=== PATIENT | male | born 1965 | race American Indian/Alaskan Native ===

== ENCOUNTER 2018-11-08 09:07 | Emergency (ER) | payer SELFPAY ==
[2018-11-08] MEDS ORDERED: IBUPROFEN PO ONE (10:28)
[2018-11-08] MEDS ORDERED: CLEOCIN IM ONE (10:28)
--- NOTE | 2018-11-08 10:44 | Emergency Department Report ---
ED ENT HPI - General Chief complaint: Dental/Oral Stated complaint: ABCESS Time Seen by Provider: 11/08/18 09:49 Source: patient Mode of arrival: Ambulatory Limitations: No Limitations - History of Present Illness Initial comments: This is a 53-year-old male nontoxic, well nourished in appearance, no acute signs of distress presents to the ED with c/o of left upper toothache 3 weeks. Patient denies following up with a dentist. Patient stated that pain radiates from his job to his left side of head. Patient otherwise denies any head trauma. Patient describes toothache as aching level of 8 out of 10. Patient denies any facial swelling. Patient denies any numbness, tingling, fever, chills, headache, stiff neck, abdominal pain, chest pain, shortness of breath. Patient denies any drug allergies or significant past medical history. MD complaint: tooth pain -: week(s) Location: tooth # 1 - dental caries Severity: mild Severity scale (0 -10): 8 Quality: aching Consistency: constant Improves with: none Worsens with: none Context- Dental: history of dental caries, poor dental care Associated Symptoms: gum swelling, toothache. denies: fever, cough, pain with swallowing, sore throat, tinnitus, hearing loss, discharge from ear, rhinorrhea - Related Data Previous Rx's Medication Instructions Recorded Last Taken Type Acetaminophen/Codeine [Tylenol 1 tab PO Q6H PRN #12 tab 11/08/18 Unknown Rx /Codeine # 3 tab] Chlorhexidine Mouthwash [Peridex] 15 ml MM BID #1 bottle 11/08/18 Unknown Rx Clindamycin [Clindamycin CAP] 300 mg PO Q8H #21 cap 11/08/18 Unknown Rx Allergies Allergy/AdvReac Type Severity Reaction Status Date / Time No Known Allergies Allergy Unverified 11/08/18 09:11 ED Dental HPI - General Chief complaint: Dental/Oral Stated complaint: ABCESS Time Seen by Provider: 11/08/18 09:49 Source: patient Mode of arrival: Ambulatory Limitations: No Limitations - Related Data Previous Rx's Medication Instructions Recorded Last Taken Type Acetaminophen/Codeine [Tylenol 1 tab PO Q6H PRN #12 tab 11/08/18 Unknown Rx /Codeine # 3 tab] Chlorhexidine Mouthwash [Peridex] 15 ml MM BID #1 bottle 11/08/18 Unknown Rx Clindamycin [Clindamycin CAP] 300 mg PO Q8H #21 cap 11/08/18 Unknown Rx Allergies Allergy/AdvReac Type Severity Reaction Status Date / Time No Known Allergies Allergy Unverified 11/08/18 09:11 ED Review of Systems ROS: Stated complaint: ABCESS Other details as noted in HPI Constitutional: denies: chills, fever Eyes: denies: eye pain, eye discharge, vision change ENT: dental pain. denies: ear pain, throat pain Respiratory: denies: cough, shortness of breath, wheezing Cardiovascular: denies: chest pain, palpitations Endocrine: no symptoms reported Gastrointestinal: denies: abdominal pain, nausea, diarrhea Genitourinary: denies: urgency, dysuria Musculoskeletal: denies: back pain, joint swelling, arthralgia Skin: denies: rash, lesions Neurological: denies: headache, weakness, paresthesias Psychiatric: denies: anxiety, depression Hematological/Lymphatic: denies: easy bleeding, easy bruising ED Past Medical Hx - Past Medical History Hx Hypertension: Yes Additional medical history: HIGH CHOLESTROL - Surgical History Hx Open Heart Surgery: Yes (2009) - Medications Home Medications: Home Medications Medication Instructions Recorded Confirmed Last Taken Type Acetaminophen/Codeine [Tylenol 1 tab PO Q6H PRN #12 tab 11/08/18 Unknown Rx /Codeine # 3 tab] Chlorhexidine Mouthwash [Peridex] 15 ml MM BID #1 bottle 11/08/18 Unknown Rx Clindamycin [Clindamycin CAP] 300 mg PO Q8H #21 cap 11/08/18 Unknown Rx ED Physical Exam - General Limitations: No Limitations General appearance: alert, in no apparent distress - Head Head exam: Present: atraumatic, normocephalic - Expanded ENT Exam Expanded Ear exam: Present: normal external inspection Mouth exam: Present: normal external inspection. Absent: drooling, trismus, muffled voice Teeth exam: Present: dental caries, fractured tooth #, dental tenderness #, gingival enlargement, other (no facial swelling) Throat exam: Positive: normal inspection, other (uvual midline. no abess present) - Neck Neck exam: Present: normal inspection, full ROM. Absent: tenderness, meningismus, lymphadenopathy - Extremities Exam Extremities exam: Present: normal inspection, full ROM - Back Exam Back exam: Present: normal inspection, full ROM - Neurological Exam Neurological exam: Present: alert, oriented X3 - Psychiatric Psychiatric exam: Present: normal affect, normal mood - Skin Skin exam: Present: warm, dry, intact, normal color. Absent: rash ED Course - Reevaluation(s) Reevaluation #1: 11/08/18 10:41 Patient is speaking in full sentences with no signs of distress noted. ED Medical Decision Making - Medical Decision Making This is a 53-year-old male that presents with gingivitis and dental caries. Patient is stable and was examined by me. There is no facial swelling. no abscess noted. I did give patient clindamycin 600 mg IM in the ED and patient is discharged with clindamycin. Follow-up patient was instructed to follow-up with a dentist and 2-3 days. Patient is discharged with Tylenol with Codeine., Peridex and Clinda. Patient was instructed not to operate any machinery when taking U Tylenol 3 due to drowsiness. At time of discharge, the patient does not seem toxic or ill in appearance. No acute signs of distress noted. Patient agrees to discharge treatment plan of care. No further questions noted by the patient. Critical care attestation.: If time is entered above; I have spent that time in minutes in the direct care of this critically ill patient, excluding procedure time. ED Disposition Clinical Impression: Dental caries, Gingivitis Disposition: [id number] TO HOME OR SELFCARE Is pt being admited?: No Does the pt Need Aspirin: No Condition: Stable Instructions: Dental Caries (ED), Gingivitis (ED), Acetaminophen/Codeine (By mouth) Additional Instructions: Follow-up with a dentist doctor in 3-5 days or if symptoms worsen and continue return to emergency room as soon as possible. Do not operate any machinery while taking Tylenol with codeine as this may cause drowsiness. Prescriptions: Clindamycin [Clindamycin CAP] 300 mg PO Q8H #21 cap Chlorhexidine Mouthwash [Peridex] 15 ml MM BID #1 bottle Acetaminophen/Codeine [Tylenol /Codeine # 3 tab] 1 tab PO Q6H PRN #12 tab PRN Reason: Pain , Severe (7-10) Referrals: OTTONIEL RANGEL MD [Primary Care Provider] - 3-5 Days PRIMARY CAREMD [Referring] - 3-5 Days YOLANDA TAPIA MD [Staff Physician] - 3-5 Days [facility] [Outside] - 3-5 Days Forms: Work/School Release Form(ED)
[2018-11-08 10:58] VITALS: BP 130/83
== END 2018-11-08 11:17 | disposition home or self-care (01) ==
LOC: ED 09:07
DX: K02.9 Dental caries, unspecified (principal); K05.10 Chronic gingivitis, plaque induced; I10 Essential (primary) hypertension; E78.00 Pure hypercholesterolemia, unspecified; Z98.890 Other specified postprocedural states
CPT/HCPCS: 96372